=== PATIENT | male | born 1965 | race Hispanic/Latino ===

== ENCOUNTER 2019-07-19 14:03 | Inpatient (IN) | payer BC ==
[2019-07-19] MEDS ORDERED: SODIUM CHLORIDE 0.9% 500 ML 500 ML IV ONE (14:25)
[2019-07-19 14:48] LABS: Basophils % (Auto) 0.6 % (0.0-1.8); Eosinophils % (Auto) 0.2 % (0.0-4.3); Hemoglobin 12.7 gm/dl (11.8-15.2); Lymphocytes # (Auto) 1.2 K/mm3 (1.2-5.4); Lymphocytes % (Auto) 16.1 % (13.4-35.0); Mean Corpuscular HGB Conc 33 % (32-34); Mean Corpuscular Volume 84 fl (84-94); Monocytes # (Auto) 0.9 K/mm3 (0.0-0.8); Monocytes % (Auto) 11.7 % (0.0-7.3); Platelet Count 407 K/mm3 (140-440); Red Blood Count 4.66 M/mm3 (3.65-5.03); Red Cell Distribution Width 14.7 % (13.2-15.2)
--- NOTE | 2019-07-19 14:53 | XRay Report ---
CHEST 1 VIEW INDICATION: possible Sepsis. COMPARISON: None. FINDINGS: Support devices: None. Heart: Normal. Lungs/Pleura: There is a large right pneumothorax with significant right lung collapse/atelectasis. T here is diffuse airspace disease throughout the left lung. IMPRESSION: 1. Large right pneumothorax. 2. Diffuse bilateral interstitial disease. CRITICAL RESULT: Pneumothorax. Time of Discovery: 1344 Central Time of Communication: 1348 central The emergency room staff was aware of this finding. Time of this dictation. Signer Name: Antonio Xavier MD Signed: 07/19/2019 2:48 PM Workstation Name: [id number]
[2019-07-19] MEDS ORDERED: LIDOCAINE (1%) 10 MG/1 ML VIAL 20 ML MDV INFILTRATI ONE (14:55)
[2019-07-19] MEDS ORDERED: MIDAZOLAM 5 MG/5 ML INJ MDV IV NR (15:00)
[2019-07-19 15:02] LABS: Alanine Aminotransferase 15 units/L (7-56); Albumin 3.7 g/dL (3.9-5); BUN/Creatinine Ratio 23; Blood Urea Nitrogen 21 mg/dL (9-20); Calcium 9.2 mg/dL (8.4-10.2); Hemolysis Index 3
[2019-07-19 15:11] LABS: INR 1.18 (0.87-1.13)
[2019-07-19] MEDS ORDERED: ONDANSETRON 4 MG/2 ML INJ IV ONE (15:52)
[2019-07-19] MEDS ORDERED: MORPHINE 2 MG/1 ML INJ IV ONE (15:52)
--- NOTE | 2019-07-19 15:55 | History and Physical Report ---
History of Present Illness Chief complaint: It is hard for me to breathe and my doctor told me that something was wrong History of present illness: 54 YO Male with HTN presents to ED for evaluation. Patient states that he has experienced nonproductive cough over the past 2 months as well as intermittent episodes of shortness of breath. Patient was seen and evaluated by his primary care physician and treated with oral antibiotic therapy without resolution of symptoms. Patient reports worsening shortness of breath over the past 1 day. Patient was seen and evaluated by his primary care physician and underwent a chest x-ray and was subsequently reported to seek further care at [facility]. Patient transported to [facility] via private vehicle for further care and evaluation. Patient seen and evaluated in the emergency department. Lab and imaging studies reviewed. Patient underwent chest x-ray and was found to have a right pneumothorax complicated by acute hypoxemic respiratory failure. A chest tube was placed in the emergency department. Patient was also found to have right upper lobe pneumonia. Patient admitted to telemetry and initiated on pneumonia protocol. CT scan of the chest was obtained and the patient was found to have areas of fibrosis bilaterally. Pulmonary team consulted in ED. Patient denies fever, chills, night sweats, chest pain, palpitations, hemoptysis, productive cough, unintentional weight loss, known ill contacts, or known exposure to COVID-19. No prior admission for review. No medication listed at time of admission for reconciliation. Past History Past Medical History: hypertension Past Surgical History: No surgical history, Other (Reviewed) Social history: single. denies: smoking, alcohol abuse Family history: no significant family history (Reviewed) Medications and Allergies Allergies Allergy/AdvReac Type Severity Reaction Status Date / Time Unable to Assess Allergy Unverified 07/19/19 14:25 Active Meds: Active Medications Midazolam HCl (Versed) 2 mg IV ONCE NR Stop: 07/19/19 23:00 Review of Systems Constitutional: no weight loss, no weight gain, no fever, no chills Ears, nose, mouth and throat: no ear pain, no ear discharge, no nose pain, no nasal congestion Cardiovascular: shortness of breath, no chest pain, no orthopnea, no rapid/irregular heart beat Respiratory: cough, no hemoptysis, no dyspnea on exertion, no pleurisy, no pain, no pain on inspiration Gastrointestinal: no nausea, no vomiting, no diarrhea, no constipation Genitourinary Male: no hematuria, no flank pain, no discharge, no urinary frequency, no urinary hesitancy Rectal: no pain, no incontinence, no bleeding Musculoskeletal: no neck stiffness, no neck pain, no shooting arm pain, no arm numbness/tingling, no low back pain Integumentary: no rash, no pruritis, no redness, no sores, no wounds Neurological: no transient paralysis, no paralysis, no weakness, no numbness, no tingling, no syncope Psychiatric: no anxiety, no memory loss, no change in sleep habits, no hypersomnia, no change in appetite, no change in libido Endocrine: no cold intolerance, no heat intolerance, no polyuria, no nocturia Hematologic/Lymphatic: no easy bruising, no easy bleeding Allergic/Immunologic: no urticaria, no allergic rhinitis Exam - Constitutional Vitals: Temp Pulse Resp BP Pulse Ox 97.6 F 117 H 24 143/84 93 07/19/19 14:21 07/19/19 15:18 07/19/19 15:18 07/19/19 15:18 07/19/19 15:18 General appearance: Present: mild distress - EENT Eyes: Present: PERRL ENT: hearing intact, clear oral mucosa - Neck Neck: Present: supple, normal ROM - Respiratory Respiratory effort: normal Respiratory: right: diminished - Cardiovascular Heart Sounds: Present: S1 & S2. Absent: rub, click - Extremities Extremities: pulses symmetrical, No edema Peripheral Pulses: within normal limits - Abdominal General gastrointestinal: Present: soft, non-tender, non-distended, normal bowel sounds Male genitourinary: Present: normal - Integumentary Integumentary: Present: clear, warm, dry - Musculoskeletal Musculoskeletal: gait normal, strength equal bilaterally - Psychiatric Psychiatric: appropriate mood/affect, intact judgment & insight - Neurologic Neurologic: CNII-XII intact, moves all extremities Results - Labs CBC & Chem 7: 07/19/19 14:33 07/19/19 14:33 Labs: Abnormal lab results 07/19/19 07/19/19 07/19/19 Range/Units 14:33 14:33 14:33 MCH 27 L (28-32) pg [place] % (Auto) 11.7 H (0.0-7.3) % [place] # 0.9 H (0.0-0.8) K/mm3 Seg Neutrophils % 71.4 H (40.0-70.0) % INR 1.18 H (0.87-1.13) VBG pH (7.320-7.420) Carbon Dioxide 20 L (22-30) mmol/L BUN 21 H (9-20) mg/dL Glucose 140 H (75-100) mg/dL Albumin 3.7 L (3.9-5) g/dL 07/19/19 Range/Units 14:33 MCH (28-32) pg [place] % (Auto) (0.0-7.3) % [place] # (0.0-0.8) K/mm3 Seg Neutrophils % (40.0-70.0) % INR (0.87-1.13) VBG pH 7.487 H (7.320-7.420) Carbon Dioxide (22-30) mmol/L BUN (9-20) mg/dL Glucose (75-100) mg/dL Albumin (3.9-5) g/dL Assessment and Plan - Patient Problems (1) Acute hypoxemic respiratory failure Current Visit: Yes Status: Acute Plan to address problem: Submental oxygen, nebulizer therapy, CT scanning of the chest, pulmonary team consulted in ED, nebulizer therapy, pulse oximetry, chest x-ray. (2) Pulmonary interstitial fibrosis Current Visit: Yes Status: Acute Plan to address problem: Pulmonology team consulted, supportive care, supplemental oxygen, nebulizer therapy, pulse oximetry. (3) Pneumonia Current Visit: Yes Status: Acute Qualifiers: Laterality: right Lung location: upper lobe of lung Plan to address problem: Pneumonia protocol: IV antibiotic therapy, CBC, CMP, chest x-ray, supplemental oxygen, pulse oximetry, blood culture. (4) Pneumothorax, right Current Visit: Yes Status: Acute Plan to address problem: Chest x-ray, CT of the chest, chest tube placed in the emergency department. Chest tube to low wall intermittent suction. Pulmonology team consulted in ED. (5) DVT prophylaxis Current Visit: Yes Status: Acute Plan to address problem: SCD to bilateral lower extremities while in bed.
[2019-07-19] MEDS ORDERED: ONDANSETRON 4 MG/2 ML INJ IV PRN (15:57)
--- NOTE | 2019-07-19 16:05 | XRay Report ---
CHEST 1 VIEW 07/19/2019 3:30 PM EST INDICATION: MAIN: Chest Tube. COMPARISON: 07/19/2019 2:25 PM EST FINDINGS: Support devices: A small caliber right upper chest tube has been placed since the last exam. Pulmonary vasculature: Normal. Heart: Within normal limits. Lungs/Pleura: The right lung has reexpanded with no detectable residual pneumothorax. Patchy opacitie s in the right upper lobe and a masslike opacity of the right lower lung. Interstitial opacities in t he left lung are less prominent than on the last exam. Additional findings: None. IMPRESSION: 1. No residual right pneumothorax after placement of a right chest tube. 2. Right upper lobe pneumonia and right lower lung pneumonia versus mass. Signer Name: Nirav Avila MD Signed: 07/19/2019 4:01 PM Workstation Name: [id number]
--- NOTE | 2019-07-19 16:08 | Emergency Department Report ---
ED General Adult HPI - General Chief complaint: Dyspnea/Respdistress Stated complaint: COUGH/FEVER/SOB/HEADACHE/ Time Seen by Provider: 07/19/19 14:35 Source: patient Mode of arrival: Ambulatory Limitations: No Limitations - History of Present Illness Initial comments: This is a 54-year-old man with no prior history of pneumonia or TB. He states he has been coughing for the past 2 months. He saw a physician in [facility] and finished a course of antibiotics. He stated that he returned to the physician and was directed to seek care in the emergency department as he was not better when he was seen yesterday. He tells me that the first chest x-ray that he received during the course of this illness was in the emergency department today. There is some language barrier but I am listed a German development educator. Patient denies a history of prior medical illness other than hypertension. He states he is compliant with medication. Does not know the name. His chest x-ray shows a moderately large right pneumothorax. Patient tells me that despite the appearance of a pneumothorax he cannot recall any acute event. He does have some anterior chest pain when he coughs but does not recall any sentinel event that could be associated with a pneumothorax. The chest pain is in the substernal region only with cough. Does not describe pleuritic pain. His cough is nonproductive. I had an development educator explained the chest tube procedure to the patient and informed consent was obtained. -: Gradual, month(s) Location: chest Radiation: non-radiation Quality: aching Consistency: now resolved Improves with: none Worsens with: other (Cough) Associated Symptoms: denies other symptoms (Also denies night sweats and weight loss) - Related Data Allergies Allergy/AdvReac Type Severity Reaction Status Date / Time Unable to Assess Allergy Unverified 07/19/19 14:25 ED Review of Systems ROS: Stated complaint: COUGH/FEVER/SOB/HEADACHE/ Other details as noted in HPI Constitutional: denies: chills, fever Eyes: denies: eye pain, eye discharge, vision change ENT: denies: ear pain, throat pain Respiratory: cough, shortness of breath. denies: wheezing Cardiovascular: chest pain. denies: palpitations Endocrine: no symptoms reported Gastrointestinal: denies: abdominal pain, nausea, diarrhea Genitourinary: denies: urgency, dysuria Musculoskeletal: denies: back pain, joint swelling, arthralgia Skin: denies: rash, lesions Neurological: denies: headache, weakness, paresthesias Psychiatric: denies: anxiety, depression Hematological/Lymphatic: denies: easy bleeding, easy bruising ED Past Medical Hx - Past Medical History Previous Medical History?: Yes Hx Hypertension: Yes - Surgical History Past Surgical History?: No - Social History Smoking Status: Former Smoker Substance Use Type: None ED Physical Exam - General Limitations: No Limitations General appearance: alert, in no apparent distress - Head Head exam: Present: atraumatic, normocephalic - Eye Eye exam: Present: normal appearance, PERRL, EOMI. Absent: scleral icterus - ENT ENT exam: Present: mucous membranes moist - Neck Neck exam: Present: normal inspection. Absent: tenderness, meningismus - Respiratory Respiratory exam: Present: other (Decreased breath sounds on the right). Absen t: respiratory distress - Cardiovascular Cardiovascular Exam: Present: regular rate, normal rhythm. Absent: systolic murmur, diastolic murmur, rubs, gallop - GI/Abdominal GI/Abdominal exam: Present: soft, normal bowel sounds. Absent: distended, tenderness, guarding, rebound - Rectal Rectal exam: Present: deferred - Extremities Exam Extremities exam: Present: normal inspection - Back Exam Back exam: Present: normal inspection. Absent: CVA tenderness (R), CVA tenderness (L) - Neurological Exam Neurological exam: Present: alert, oriented X3, CN II-XII intact. Absent: motor sensory deficit - Psychiatric Psychiatric exam: Present: normal affect, normal mood - Skin Skin exam: Present: warm, dry, intact, normal color. Absent: rash ED Course Vital Signs 07/19/19 07/19/19 14:21 15:18 Temperature 97.6 F Pulse Rate 129 H Pulse Rate [ 115 H Intra-Procedure ] Pulse Rate [ 115 H Post-Procedure] Pulse Rate [Pre 117 H -Procedure] Respiratory 22 Rate Respiratory 26 H Rate [Intra- Procedure] Respiratory 26 H Rate [Post- Procedure] Respiratory 24 Rate [Pre- Procedure] Blood Pressure 169/102 Blood Pressure 127/73 [Intra- Procedure] Blood Pressure 110/65 [Post-Procedure ] Blood Pressure 143/84 [Pre-Procedure] O2 Sat by Pulse 93 Oximetry O2 Sat by Pulse 93 Oximetry [ Intra-Procedure ] O2 Sat by Pulse 92 Oximetry [Post -Procedure] O2 Sat by Pulse 93 Oximetry [Pre- Procedure] - Reevaluation(s) Reevaluation #1: Patient tolerated chest tube procedure well with local anesthesia. The lung was well expanded on chest x-ray. There was somewhat nodular densities that were somewhat suspicious for neoplasm. Patient also had chronic lung bilaterally. Case was discussed with the hospitalist Dr. Ruiz. A CT of the chest is ordered and pending. 07/19/19 16:11 - Chest Tube Chest Tube Location: fifth interspace Chest Tube Procedure: betadine prep Anesthesia: 1% Lidocaine Volume Anesthetic (ccs): 5 [place] of Air [place]: No Number of Attempts: 1 Tube Drainage: see nurses notes (Air plus Serosanguinous fluid small amount) Tube Sutured to Skin: Yes Post Procedure CXR?: Yes Progress: A Heimlich chest tube set was used. The skin was punctured with an 11 blade. The catheter was advanced into the chest cavity without difficulty. It was advanced further into the pleural space. The tube was sterilely sutured with a purse-string and wrap around. It was sterilely dressed. The procedure was well-tolerated. ED Medical Decision Making - Lab Data Result diagrams: 07/19/19 14:33 07/19/19 14:33 Laboratory Results - last 24 hr 07/19/19 07/19/19 07/19/19 14:33 14:33 14:33 WBC 7.6 RBC 4.66 Hgb 12.7 Hct 39.0 MCV 84 MCH 27 L MCHC 33 RDW 14.7 Plt Count 407 Lymph % (Auto) 16.1 [place] % (Auto) 11.7 H Eos % (Auto) 0.2 Baso % (Auto) 0.6 Lymph # 1.2 [place] # 0.9 H Eos # 0.0 Baso # 0.0 Seg Neutrophils % 71.4 H Seg Neutrophils # 5.4 PT 14.8 INR 1.18 H VBG pH Sodium 141 Potassium 3.8 Chloride 105.2 Carbon Dioxide 20 L Anion Gap 20 BUN 21 H Creatinine 0.9 Estimated GFR > 60 BUN/Creatinine Ratio 23 Glucose 140 H Lactic Acid Calcium 9.2 Total Bilirubin 0.60 AST 23 ALT 15 Alkaline Phosphatase 90 Total Protein 7.8 Albumin 3.7 L Albumin/Globulin Ratio 0.9 07/19/19 07/19/19 14:33 14:33 WBC RBC Hgb Hct MCV MCH MCHC RDW Plt Count Lymph % (Auto) [place] % (Auto) Eos % (Auto) Baso % (Auto) Lymph # [place] # Eos # Baso # Seg Neutrophils % Seg Neutrophils # PT INR VBG pH 7.487 H Sodium Potassium Chloride Carbon Dioxide Anion Gap BUN Creatinine Estimated GFR BUN/Creatinine Ratio Glucose Lactic Acid 1.90 Calcium Total Bilirubin AST ALT Alkaline Phosphatase Total Protein Albumin Albumin/Globulin Ratio - Radiology Data Radiology results: report reviewed, image reviewed interpreted by me: Moderately large right pneumothorax with bilateral interstitial disease. Post chest tube insertion full lung reexpansion. Suggestion of mass lesion consider pneumonia on the right. IMPRESSION post chest tube: 1. No residual right pneumothorax after placement of a right chest tube. 2. Right upper lobe pneumonia and right lower lung pneumonia versus mass. Critical care attestation.: If time is entered above; I have spent that time in minutes in the direct care of this critically ill patient, excluding procedure time. ED Disposition Clinical Impression: Pneumothorax, right, Abnormal chest x-ray Disposition: OP ADMIT IP TO THIS HOSP Is pt being admited?: Yes Does the pt Need Aspirin: No Condition: Stable Time of Disposition: 16:15
[2019-07-19] MEDS ORDERED: ceFAZolin 1 GM VIAL ONE (17:36)
[2019-07-19] MEDS ORDERED: SODIUM CHLORIDE 0.9% 0 ML ONE (17:39)
--- NOTE | 2019-07-19 17:56 | Cat Scan Report ---
CT chest wo con INDICATION: PNEUMOTHORAX MASSLIKE DENSITIES. TECHNIQUE: All CT scans at this location are performed using the following dose modulation technique: Automated exposure control. CONTRAST: None. COMPARISON: None available. FINDINGS: Right chest tube in place with resolution of previously seen right pneumothorax. Multiple a reas of interstitial thickening with confluence and volume loss are seen scattered throughout all candace g zones. There is intervening normal lung. Negative for well-defined mass, dense infiltrate or pleura l fluid. 2 cystic areas are present at the right base with the larger measuring 4.6 cm and containing a small amount of fluid. No mediastinal mass or adenopathy. Coronary artery calcification is mild. Imaging of the upper abdome n is unremarkable. IMPRESSION: 1. Resolution of right pneumothorax status post chest tube placement. 2. Areas of volume loss with confluent fibrosis bilaterally. A process such as occupational exposure is favored. Atypical infection is thought to be less likely. Signer Name: Kuldeep Heredia MD Signed: 07/19/2019 5:51 PM Workstation Name: [id number]
[2019-07-19] MEDS: ceFAZolin/NS 1 GM/50 ML 1 GM/50 ML BAG IV SCH (17:59)
[2019-07-20] MEDS: ceFAZolin/NS 1 GM/50 ML 1 GM/50 ML BAG IV SCH ×4 (00:37→23:53)
[2019-07-20 05:15] LABS: BUN/Creatinine Ratio 24; Blood Urea Nitrogen 17 mg/dL (9-20); Calcium 8.6 mg/dL (8.4-10.2); Hemolysis Index 13
[2019-07-20 07:23] LABS: Bacteria,Urine 1+ /HPF (Negative); Bilirubin,Urine NEG (Negative); Blood,Urine NEG (Negative); Color,Urine Yellow (Yellow); Mucus,Urine 3+ /HPF; Urobilinogen,Urine < 2.0 mg/dL (<2.0)
--- NOTE | 2019-07-20 07:41 | Consultation ---
History of Present Illness Consult date: 07/20/19 Requesting physician: BRAVO ROJAS Reason for consult: chest pain, pneumothorax, abnormal CXR/CT History of present illness: 54 y/o male who presented to the ED with shortness of breath and chest pain. Found to have moderate sized PTX on the right. Chest tube placed in ED. Pulmonary consulted via order in chart. This am, spoke with [facility] when they were evaluating patient and chest tube was not hooked up to suction. Repeat CXR done luckily shows that lung was still up. Remainder is negative. Past History Past Medical History: hypertension Past Surgical History: No surgical history, Other (Reviewed) Social history: single. denies: smoking, alcohol abuse Family history: no significant family history (Reviewed) Medications and Allergies Allergies Allergy/AdvReac Type Severity Reaction Status Date / Time Unable to Assess Allergy Unverified 07/19/19 14:25 Active Meds: Active Medications Acetaminophen (Tylenol) 650 mg PO Q4H PRN PRN Reason: Pain MILD(1-3)/Fever >100.5/NGUYEN Cefazolin Sodium (Ancef/Ns 1 Gm/50 Ml) 1 gm in 50 mls @ 100 mls/hr IV Q8H ISAAC; Protocol Last Admin: 07/20/19 00:37 Dose: 100 mls/hr Documented by: Levofloxacin/Dextrose (Levaquin 750mg/150ml) 750 mg in 150 mls @ 100 mls/hr IV Q24H ISAAC; Protocol Last Admin: 07/19/19 19:55 Dose: 100 mls/hr Documented by: Ondansetron HCl (Zofran) 4 mg IV Q8H PRN PRN Reason: Nausea And Vomiting Sodium Chloride (Sodium Chloride Flush Syringe 10 Ml) 10 ml IV BID ISAAC Sodium Chloride (Sodium Chloride Flush Syringe 10 Ml) 10 ml IV PRN PRN PRN Reason: LINE FLUSH Review of Systems All systems: negative Physical Examination Vital signs: Vital Signs Temp Pulse Resp BP Pulse Ox 97.6 F 129 H 16 167/102 93 07/19/19 14:08 07/19/19 14:08 07/19/19 14:08 07/19/19 14:08 07/19/19 14:08 General appearance: no acute distress, alert Eyes: non-icteric ENT: oropharynx moist Neck: supple Effort: normal Ascultation: Bilateral: rhonchi Percussion: Bilateral: not dull Tactile fremitus: Bilateral: normal Results - Laboratory Findings CBC and BMP: 07/19/19 14:33 07/20/19 03:30 PT/INR, D-dimer PT 14.8 Sec. (12.2-14.9) 07/19/19 14:33 INR 1.18 (0.87-1.13) H 07/19/19 14:33 Abnormal lab findings: Abnormal Labs 07/19/19 07/19/19 07/19/19 14:33 14:33 14:33 MCH 27 L Emanuel % (Auto) 11.7 H Emanuel # 0.9 H Seg Neutrophils % 71.4 H INR 1.18 H VBG pH Carbon Dioxide 20 L BUN 21 H Creatinine Glucose 140 H Albumin 3.7 L Ur Specific [place] Urine WBC (Auto) 07/19/19 07/20/19 07/20/19 14:33 03:30 Unknown MCH Emanuel % (Auto) Emanuel # Seg Neutrophils % INR VBG pH 7.487 H Carbon Dioxide 21 L BUN Creatinine 0.7 L Glucose Albumin Ur Specific [place] 1.032 H Urine WBC (Auto) 42.0 H - Diagnostic Findings Chest x-ray: image reviewed (Re-expansion of lung, abnormal spaces remain) Assessment and Plan 54 y/o male with spontaneous right sided ptx, status post tube thoracostomy now with abnormal CT scan 1. Continue Water seal today. 2. Repeat CXR tomorrow, if still up will discontinue chest tube 3. May eventually need lung biopsy as his lesions are sparse and doubt that TBBx will get enough tissue 4. OK with abx therapy.
--- NOTE | 2019-07-20 08:56 | Progress Note ---
Assessment and Plan Assessment and plan: 54 YO Male with HTN presents to ED for evaluation. Patient states that he has experienced nonproductive cough over the past 2 months as well as intermittent episodes of shortness of breath. Patient was seen and evaluated by his primary care physician and treated with oral antibiotic therapy without resolution of symptoms. Patient reports worsening shortness of breath over the past 1 day. Patient was seen and evaluated by his primary care physician and underwent a chest x-ray and was subsequently reported to seek further care at [facility]. Patient transported to [facility] via private vehicle for further care and evaluation. Patient seen and evaluated in the emergency department. Lab and imaging studies reviewed. * chest x-ray and was found to have a right pneumothorax complicated by acute hypoxemic respiratory failure. A chest tube was placed in the emergency department. Patient was also found to have right upper lobe pneumonia. * Patient admitted to telemetry and initiated on pneumonia protocol. CT scan of the chest was obtained and the patient was found to have areas of fibrosis bilaterally. 07/19: This am continues to improve, although noted the chest tube was only to water seal and not to Intermittent suction. Discussed with Pulmonary, No acutely compromised. Continue treatment for pneumonia in addition. Anticipate chest tube removal tomorrow if chest x-ray shows no further pneumothorax. Acute hypoxemic respiratory failure secondary to pneumothorax Possible pulmonary interstitial fibrosis versus mass Right upper lobe pneumonia Right spontaneous Pneumothorax Acute Cystitis PLAN Continue current therapy oxygen, pulse oximetry, blood culture. 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 GENERAL: The patient appears normally developed, Vital signs as documented. HEAD: No signs of head trauma. EYES: Pupils are equal. Extraocular motions intact. EARS: Hearing grossly intact. MOUTH: Oropharynx is normal. NECK: No adenopathy, no JVD. CHEST: Right-sided chest wall tube. Chest with clear breath sounds bilaterally. No wheezes, rales, or rhonchi. CARDIAC: Regular rate and rhythm. S1 and S2, without murmurs, gallops, or rubs. VASCULAR: No Edema. Peripheral pulses normal and equal in all extremities. ABDOMEN: Soft, non tender and non distended. No rebound or guarding, and no masses palpated. Bowel Sounds normal. MUSCULOSKELETAL: Good range of motion of all major joints. Extremities without clubbing, cyanosis or edema. NEUROLOGIC EXAM: Alert and oriented x 3 No focal sensory or strength deficits. Speech normal. Follows commands. PSYCHIATRIC: Mood normal. SKIN: detial exam as documented in skin assessment - Constitutional Vitals: Temp Pulse Resp BP Pulse Ox 98.0 F 89 20 170/99 95 07/20/19 07:13 07/20/19 07:13 07/20/19 07:13 07/20/19 07:13 07/20/19 07:13 General appearance: Present: mild distress Results - Labs CBC & Chem 7: 07/19/19 14:33 07/20/19 03:30 Labs: Laboratory Last Values WBC 7.6 K/mm3 (4.5-11.0) 07/19/19 14:33 RBC 4.66 M/mm3 (3.65-5.03) 07/19/19 14:33 Hgb 12.7 gm/dl (11.8-15.2) 07/19/19 14:33 Hct 39.0 % (35.5-45.6) 07/19/19 14:33 MCV 84 fl (84-94) 07/19/19 14:33 MCH 27 pg (28-32) L 07/19/19 14:33 MCHC 33 % (32-34) 07/19/19 14:33 RDW 14.7 % (13.2-15.2) 07/19/19 14:33 Plt Count 407 K/mm3 (140-440) 07/19/19 14:33 Lymph % (Auto) 16.1 % (13.4-35.0) 07/19/19 14:33 Rhea % (Auto) 11.7 % (0.0-7.3) H 07/19/19 14:33 Eos % (Auto) 0.2 % (0.0-4.3) 07/19/19 14:33 Baso % (Auto) 0.6 % (0.0-1.8) 07/19/19 14:33 Lymph # 1.2 K/mm3 (1.2-5.4) 07/19/19 14:33 Rhea # 0.9 K/mm3 (0.0-0.8) H 07/19/19 14:33 Eos # 0.0 K/mm3 (0.0-0.4) 07/19/19 14:33 Baso # 0.0 K/mm3 (0.0-0.1) 07/19/19 14:33 Seg Neutrophils % 71.4 % (40.0-70.0) H 07/19/19 14: Seg Neutrophils # 5.4 K/mm3 (1.8-7.7) 07/19/19 14:33 PT 14.8 Sec. (12.2-14.9) 07/19/19 14:33 INR 1.18 (0.87-1.13) H 07/19/19 14:33 VBG pH 7.487 (7.320-7.420) H 07/19/19 14:33 Sodium 143 mmol/L (137-145) 07/20/19 03:30 Potassium 3.8 mmol/L (3.6-5.0) 07/20/19 03:30 Chloride 105.5 mmol/L (98-107) 07/20/19 03:30 Carbon Dioxide 21 mmol/L (22-30) L 07/20/19 03:30 Anion Gap 20 mmol/L 07/20/19 03:30 BUN 17 mg/dL (9-20) 07/20/19 03:30 Creatinine 0.7 mg/dL (0.8-1.5) L 07/20/19 03:30 Estimated GFR > 60 ml/min 07/20/19 03:30 BUN/Creatinine Ratio 24 % 07/20/19 03:30 Glucose 97 mg/dL (75-100) 07/20/19 03:30 Lactic Acid 1.10 mmol/L (0.7-2.0) 07/19/19 17:29 Calcium 8.6 mg/dL (8.4-10.2) 07/20/19 03:30 Total Bilirubin 0.60 mg/dL (0.1-1.2) 07/19/19 14:33 AST 23 units/L (5-40) 07/19/19 14:33 ALT 15 units/L (7-56) 07/19/19 14:33 Alkaline Phosphatase 90 units/L (35-129) 07/19/19 14:33 Total Protein 7.8 g/dL (6.3-8.2) 07/19/19 14:33 Albumin 3.7 g/dL (3.9-5) L 07/19/19 14:33 Albumin/Globulin Ratio 0.9 % 07/19/19 14:33 Urine Color Yellow (Yellow) 07/20/19 Unknown Urine Turbidity Slightly-cloudy (Clear) 07/20/19 Unknown Urine pH 5.0 (5.0-7.0) 07/20/19 Unknown Ur Specific Gillett 1.032 (1.003-1.030) H 07/20/19 Unknown Urine Protein 30 mg/dl mg/dL (Negative) 07/20/19 Unknown Urine Glucose (UA) Neg mg/dL (Negative) 07/20/19 Unknown Urine Ketones Tr mg/dL (Negative) 07/20/19 Unknown Urine Blood Neg (Negative) 07/20/19 Unknown Urine Nitrite Neg (Negative) 07/20/19 Unknown Urine Bilirubin Neg (Negative) 07/20/19 Unknown Urine Urobilinogen < 2.0 mg/dL (<2.0) 07/20/19 Unknown Ur Leukocyte Esterase Mod (Negative) 07/20/19 Unknown Urine WBC (Auto) 42.0 /HPF (0.0-6.0) H 07/20/19 Unknown Urine RBC (Auto) 4.0 /HPF (0.0-6.0) 07/20/19 Unknown U Epithel Cells (Auto) 12.0 /HPF (0-13.0) 07/20/19 Unknown Urine Bacteria (Auto) 1+ /HPF (Negative) 07/20/19 Unknown Urine Mucus 3+ /HPF 07/20/19 Unknown Urine Yeast (Budding) Few /HPF 07/20/19 Unknown Microbiology: Microbiology 07/19/19 14:43 Peripheral/Venous Blood Culture - Preliminary Culture in Progress 07/19/19 14:33 Peripheral/Venous Blood Culture - Preliminary Culture in Progress Ortez/IV: Voiding Method Urinal IV Catheter Type [Left INT / Saline Lock Antecubital] Active Medications - Current Medications Current Medications: Generic Name Dose Route Start Last Admin Trade Name Freq PRN Reason Stop Dose Admin Acetaminophen 650 mg 07/19/19 15:57 Tylenol PO Q4H PRN Pain MILD(1-3)/Fever >100.5/NGUYEN Cefazolin Sodium 1 gm in 50 mls @ 100 mls/hr 07/19/19 17:00 07/20/19 00:37 Ancef/Ns 1 Gm/50 Ml IV 100 mls/hr Q8H ISAAC Administration Protocol Levofloxacin/Dextrose 750 mg in 150 mls @ 100 mls/hr 07/19/19 18:00 07/19/19 19:55 Levaquin 750mg/150ml IV 100 mls/hr Q24H ISAAC Administration Protocol Ondansetron HCl 4 mg 07/19/19 15:57 Zofran IV Q8H PRN Nausea And Vomiting Sodium Chloride 10 ml 07/19/19 22:00 Sodium Chloride Flush Syringe 10 Ml IV BID ISAAC Sodium Chloride 10 ml 07/19/19 15:57 Sodium Chloride Flush Syringe 10 Ml IV PRN PRN LINE FLUSH
[2019-07-20] MEDS: ACETAMINOPHEN 325 MG TAB PO PRN ×2 (10:17→23:46)
--- NOTE | 2019-07-20 10:46 | XRay Report ---
CHEST 1 VIEW INDICATION: pneumothorax. COMPARISON: 07/19/2019 FINDINGS: SUPPORT DEVICES: Chest drainage catheter or pneumothorax. HEART / MEDIASTINUM: No significant abnormality. LUNGS / PLEURA: Persistent patchy parenchymal changes bilaterally. Small bore drainage catheters pres ent right hemithorax without convincing evidence of recurrent pneumothorax. ADDITIONAL FINDINGS: IMPRESSION: 1. No significant interval change compared to previous Signer Name: Keven Silverio MD Signed: 07/20/2019 10:42 AM Workstation Name: [id number]
[2019-07-20] MEDS: hydrALAZINE 20 MG/1 ML INJ IV PRN (23:47)
--- NOTE | 2019-07-21 09:08 | Discharge Summary ---
Providers - Providers Date of Admission: 07/19/19 15:57 Attending physician: KOKO CHANEL MD 07/19/19 19:54 Consult to Physician [CONS] Routine Comment: Consulting Provider: ZARINA ARAUZ Physician Instructions: Reason For Exam: lung fibrosis Primary care physician: REGULAR SENIOR CARE PROVIDER Hospitalization Reason for admission: Pneumothorax Condition: Stable Hospital course: 54 YO Male with HTN presents to ED for evaluation. Patient states that he has experienced nonproductive cough over the past 2 months as well as intermittent episodes of shortness of breath. Patient was seen and evaluated by his primary care physician and treated with oral antibiotic therapy without resolution of symptoms. Patient reports worsening shortness of breath over the past 1 day. Patient was seen and evaluated by his primary care physician and underwent a chest x-ray and was subsequently reported to seek further care at [facility]. Patient transported to [facility] via private vehicle for further care and evaluation. Patient seen and evaluated in the emergency department. Lab and imaging studies reviewed. * chest x-ray and was found to have a right pneumothorax complicated by acute hypoxemic respiratory failure. A chest tube was placed in the emergency department. Patient was also found to have right upper lobe pneumonia. * Patient admitted to telemetry and initiated on pneumonia protocol. CT scan of the chest was obtained and the patient was found to have areas of fibrosis bilaterally. 07/19: This am continues to improve, although noted the chest tube was only to water seal and not to Intermittent suction. Discussed with Pulmonary, No acutely compromised. Continue treatment for pneumonia in addition. Anticipate chest tube removal tomorrow if chest x-ray shows no further pneumothorax. 07/20: Patient seen and examined, clinically stable at this time. chest tube was removed this am. Repeat xray suspects possible small residual pneumothoarx but no further chest pain or respiratory distress. Patient advised about need to follow with Pulmonary and possble need for biopsy for further management and diagnosis Acute hypoxemic respiratory failure secondary to pneumothorax Possible pulmonary interstitial fibrosis versus mass Right upper lobe pneumonia Right spontaneous Pneumothorax Acute Cystitis No evidence of sepsis Disposition: DC-01 TO HOME OR SELFCARE Time spent for discharge: 35 mins Core Measure Documentation - Palliative Care Palliative Care/ Comfort Measures: Not Applicable - Core Measures Any of the following diagnoses?: none Exam - Physical Exam Narrative exam: VITAL SIGNS: Reviewed. GENERAL: The patient appears normally developed, Vital signs as documented. HEAD: No signs of head trauma. EYES: Pupils are equal. Extraocular motions intact. EARS: Hearing grossly intact. MOUTH: Oropharynx is normal. NECK: No adenopathy, no JVD. CHEST: Right-sided chest wall tube. Chest with clear breath sounds bilaterally. No wheezes, rales, or rhonchi. CARDIAC: Regular rate and rhythm. S1 and S2, without murmurs, gallops, or rubs. VASCULAR: No Edema. Peripheral pulses normal and equal in all extremities. ABDOMEN: Soft, non tender and non distended. No rebound or guarding, and no masses palpated. Bowel Sounds normal. MUSCULOSKELETAL: Good range of motion of all major joints. Extremities without clubbing, cyanosis or edema. NEUROLOGIC EXAM: Alert and oriented x 3 No focal sensory or strength deficits. Speech normal. Follows commands. PSYCHIATRIC: Mood normal. SKIN: detial exam as documented in skin assessment - Constitutional Vitals: Temp Pulse Resp BP Pulse Ox 98.0 F 91 H 20 152/95 97 07/21/19 07:52 07/21/19 07:52 07/21/19 07:52 07/21/19 07:52 07/21/19 07:52 Plan Activity: advance as tolerated, fall precautions Diet: low fat Special Instructions: record daily BP diary, smoking cessation Additional Instructions: must follow with pulmonary in 7-10 days Follow up with: CHADD CRAFT MD [Staff Physician] - 7 Days PRIMARY CARE, [Primary Care Provider] - 3-5 Days Prescriptions: levoFLOXacin [Levaquin TAB] 500 mg PO QDAY #3 tablet Albuterol INH(or & Nicu Only) [ProAir HFA Inhaler] 2 puff IH QID PRN #8.5 gram PRN Reason: Shortness Of Breath
--- NOTE | 2019-07-21 09:10 | Progress Note ---
Assessment and Plan 54 y/o male with spontaneous right sided ptx, status post tube thoracostomy now with abnormal CT scan 1. elected to go ahead an pull chest tube this am. Patient tolerated well 2. asked IMS to watch for about 3 hours prior to discharge 3. Told nursing to order stat film if patient had any respiratory complaints or chest pain 4. Will have patient follow up in our office for work up of abnormal CXR, may ultimately need biopsy. Subjective Date of service: 07/21/19 Interval history: No acute events. Repeat CXR shows that lung is up but was placed back on suction. No distress was documented and patient had no complaints of this. Per patient, breathing is good. Just pain around the site. Objective Vital Signs - 12hr 07/20/19 07/20/19 07/21/19 21:28 23:21 03:47 Temperature 97.7 F 98.1 F 97.8 F Pulse Rate 85 97 H 105 H Respiratory 18 18 20 Rate Blood Pressure 156/97 174/103 141/95 O2 Sat by Pulse 97 96 97 Oximetry 07/21/19 07:52 Temperature 98.0 F Pulse Rate 91 H Respiratory 20 Rate Blood Pressure 152/95 O2 Sat by Pulse 97 Oximetry Constitutional: no acute distress, alert Eyes: non-icteric ENT: oropharynx moist Neck: supple Effort: normal Ascultation: Bilateral: rhonchi Percussion: Bilateral: not dull Tactile fremitus: Bilateral: normal CBC and BMP: 07/19/19 14:33 07/20/19 03:30 ABG, PT/INR, D-dimer: PT/INR, D-dimer PT 14.8 Sec. (12.2-14.9) 07/19/19 14:33 INR 1.18 (0.87-1.13) H 07/19/19 14:33 Abnormal lab findings: Abnormal Labs 07/19/19 07/19/19 07/19/19 14:33 14:33 14:33 MCH 27 L Harnett % (Auto) 11.7 H Harnett # 0.9 H Seg Neutrophils % 71.4 H INR 1.18 H VBG pH Carbon Dioxide 20 L BUN 21 H Creatinine Glucose 140 H Albumin 3.7 L Ur Specific Radiant Urine WBC (Auto) 07/19/19 07/20/19 07/20/19 14:33 03:30 Unknown MCH Harnett % (Auto) Harnett # Seg Neutrophils % INR VBG pH 7.487 H Carbon Dioxide 21 L BUN Creatinine 0.7 L Glucose Albumin Ur Specific Radiant 1.032 H Urine WBC (Auto) 42.0 H
--- NOTE | 2019-07-21 09:51 | XRay Report ---
CHEST 1 VIEW 07/21/2019 8:40 AM INDICATION / CLINICAL INFORMATION: Pneumothorax. COMPARISON: One view of the chest from 07/20/2019. FINDINGS: SUPPORT DEVICES: Minimal interval retraction of the right chest tube. The tip of the tube remains pro jecting over the lateral margin of the right mid lung. HEART / MEDIASTINUM: Stable. LUNGS / PLEURA: Similar bilateral airspace opacities. No significant pleural effusion. No pneumothora x. ADDITIONAL FINDINGS: No significant additional findings. IMPRESSION: 1. Minimal retraction of the right chest tube without visualization of a pneumothorax. 2. Otherwise stable appearance of the chest. Signer Name: Tye Rhodes MD Signed: 07/21/2019 9:46 AM Workstation Name: [id number]
--- NOTE | 2019-07-21 09:52 | XRay Report ---
CHEST 1 VIEW 07/21/2019 8:40 AM INDICATION / CLINICAL INFORMATION: Chest pain. Status post chest tube removal. COMPARISON: One view of the chest from earlier today. FINDINGS: SUPPORT DEVICES: The previously seen right chest tube has been removed. HEART / MEDIASTINUM: Stable. LUNGS / PLEURA: Bilateral airspace opacities are similar. There is a questionable trace right apical pneumothorax. No significant pleural effusion. ADDITIONAL FINDINGS: No significant additional findings. IMPRESSION: 1. Interval right chest tube removal with a questionable trace right apical pneumothorax. 2. Otherwise stable appearance of the chest. Signer Name: Tye Rhodes MD Signed: 07/21/2019 9:47 AM Workstation Name: [id number]
[2019-07-21] MEDS: ceFAZolin/NS 1 GM/50 ML 1 GM/50 ML BAG IV SCH (10:20)
[2019-07-21] MEDS: ACETAMINOPHEN 325 MG TAB PO PRN (10:32)
[2019-07-21 16:09] VITALS: BP 176/106
[2019-07-21] MEDS: hydrALAZINE 20 MG/1 ML INJ IV PRN (16:13)
[2019-07-21] MEDS ORDERED: amLODIPine 5 MG TAB PO SCH (17:00)
== END 2019-07-21 17:54 | disposition home or self-care (01) | DRG 199 ==
LOC: ED 14:03 → EDBD 15:57 → 4A 15:57
PROVIDERS: ADMIT Internal Medicine; ATTEND Internal Medicine
PROC: 0W9930Z Drainage of Right Pleural Cavity with Drainage Device, Percutaneous Approach (ICD-10-PCS; principal; 2019-07-19)
DX: J93.9 Pneumothorax, unspecified (principal); J96.01 Acute respiratory failure with hypoxia; J18.9 Pneumonia, unspecified organism; N30.00 Acute cystitis without hematuria; I10 Essential (primary) hypertension; F17.210 Nicotine dependence, cigarettes, uncomplicated; Z71.6 Tobacco abuse counseling
CPT/HCPCS: 36415; 71045; 71250; 80048; 80053; 81001; 82140; 82805; 85025; 85610; 87040; 87086; 93005; 94760; 99406; G0378; J0360; J0690; J1956; J2250; J2270; J2405; J7040